=== PATIENT | female | born 1970 | race Caucasian/White ===

== ENCOUNTER 2023-08-11 18:43 | Emergency (ER) | payer MEDICAID ==
[2023-08-11 19:12] LABS: BASOPHILS # (AUTO) 0.1 10^3/uL (0.0-0.1); BASOPHILS % (AUTO) 0.7 %; EOSINOPHILS % (AUTO) 0.1 %; HCT - HEMATOCRIT 43.7 % (37.0-47.0); HGB - HEMOGLOBIN 14.4 g/dL (12.0-16.0); LYMPHOCYTES # (AUTO) 2.1 10^3/uL (1.5-3.5); LYMPHOCYTES % (AUTO) 25.7 %; MEAN CORPUSCULAR HEMOGLOBIN 29.6 pg (27.0-31.0); MEAN CORPUSCULAR VOLUME 89.9 fL (81.0-99.0); MEAN PLATELET VOLUME 10.5 fL (7.9-10.8); MONOCYTES # (AUTO) 0.5 10^3/uL (0.0-1.0); MONOCYTES % (AUTO) 6.1 %; NEUTROPHILS # (AUTO) 5.5 10^3/uL (1.5-6.6); NEUTROPHILS % (AUTO) 66.7 %; PLT - PLATELET COUNT 290 10^3/uL (130-450); RED BLOOD COUNT 4.86 10^6/uL (4.20-5.40); RED CELL DISTRIBUTION WIDTH 12.6 % (12.0-15.0); WHITE BLOOD COUNT 8.2 x10^3/uL (4.8-10.8)
[2023-08-11 19:47] LABS: ALBUMIN 5.1 g/dL (3.2-5.5); BILIRUBIN,TOTAL 0.3 mg/dL (0.2-1.0); CREATININE 0.7 mg/dL (0.6-1.3); MAGNESIUM 1.7 mg/dL (1.7-2.3); TOTAL PROTEIN 7.6 g/dL (6.4-8.9)
[2023-08-11 20:01] LABS: THYROID STIMULATING HORMONE 3.02 uIU/mL (0.34-5.60)
[2023-08-11] MEDS ORDERED: BENZONATATE 100 MG CAPSULE PO STA (21:11)
--- NOTE | 2023-08-11 21:14 | ED Physician Documentation ---
History of Present Illness - Stated complaint Stated Complaint: HIGH HEART RATE/COUGH - Chief complaint Chief Complaint: Cardiac - Additonal information Additional information: Patient 53-year-old female presenting to the emergency department with chest pressure, cough, rapid heart rate. She reports a history of frequent episodes of bronchitis that usually happen in the winter months. Reports that for the last 5 days she has been having cough with intermittent episodes of chest pressure which she states feels similar to bronchitis she has had in the past however she does report that the chest pressure is new and different for her. She also reports some swelling in her lower extremities. She denies any cardiac history, travel, history of blood clots, smoking. Does report that at one time she was on medication for cholesterol but this was discontinued by her primary care doctor when her "numbers got better". Denies any fever, hemoptysis, abdominal pain, nausea, vomiting, diarrhea, constipation. Review of Systems Constitutional: denies: Fever Eyes: denies: Loss of vision Ears: denies: Loss of hearing Nose: denies: Rhinorrhea / runny nose Cardiac: reports: Chest pain / pressure Respiratory: reports: Cough GI: reports: Abdominal Pain, Nausea, Vomiting, Constipation : reports: Dysuria PD PAST MEDICAL HISTORY - Past Medical History Past Medical History: No - Past Surgical History Past Surgical History: No Ortho: Shoulder arthroplasty - Present Medications Home Medications: Ambulatory Orders Medication Instructions Recorded Confirmed Benzonatate [Tessalon] 200 mg PO TID PRN #30 cap 08/11/23 Codeine Phosphate/Guaifenesin 5 ml PO OAW PRN #50 ml 08/11/23 [Codeine-Guaifen 10-100 mg/5 ml] - Allergies Allergies/Adverse Reactions: Allergies Allergy/AdvReac Type Severity Reaction Status Date / Time No Known Drug Allergies Allergy Verified 08/11/23 18:54 - Social History Does the pt smoke?: No Smoking Status: Never smoker Results - Vitals Vitals: Vital Signs - 24 hr 08/11/23 08/11/23 18:49 21:28 Temperature 36.7 C Heart Rate 127 H 90 Respiratory 16 14 Rate Blood Pressure 183/119 H 143/103 H O2 Saturation 97 99 Oxygen O2 Source Room air - EKG (time done) 1124 EKG releavant findings:: EKG personally interpreted by author of this note. Relevant findings are: Sinus rhythm with rate 111 bpm. Normal axis. Normal SD, QRS, QTc intervals. No ST segment elevations. Nonspecific ST abnormalities noted in the early precordial leads. No previous EKG available for comparison. - Labs Labs: Laboratory Tests 08/11/23 08/11/23 08/11/23 19:08 19:08 21:16 WBC 8.2 RBC 4.86 Hgb 14.4 Hct 43.7 MCV 89.9 MCH 29.6 MCHC 33.0 RDW 12.6 Plt Count 290 MPV 10.5 Neut # (Auto) 5.5 Lymph # (Auto) 2.1 O'Brien # (Auto) 0.5 Eos # (Auto) 0.0 Baso # (Auto) 0.1 Absolute Nucleated RBC 0.00 Nucleated RBC % 0.0 D-Dimer 226.7 Sodium 141 Potassium 4.0 Chloride 107 Carbon Dioxide 26 Anion Gap 8.0 BUN 8 Creatinine 0.7 Estimated GFR (MDRD) 88 L Glucose 100 Calcium 10.0 Magnesium 1.7 Total Bilirubin 0.3 AST 16 ALT 24 Alkaline Phosphatase 65 Troponin I High Sens Total Protein 7.6 Albumin 5.1 Globulin 2.5 Albumin/Globulin Ratio 2.0 TSH 3.02 Nasal Adenovirus (PCR) Nasal B. parapertussis DNA (PCR) Nasal Coronavir 229E PCR Nasal Coronavir HKU1 PCR Nasal Coronavir NL63 PCR Nasal Coronavir OC43 PCR Nasal Enterovir/Rhinovir PCR Nasal Influenza B PCR Nasal Influenza A PCR Nasal Parainfluen 1 PCR Nasal Parainfluen 2 PCR Nasal Parainfluen 3 PCR Nasal Parainfluen 4 PCR Nasal RSV (PCR) Nasal B.pertussis DNA PCR Nasal C.pneumoniae (PCR) Valentin Human Metapneumo PCR Nasal M.pneumoniae (PCR) Nasal SARS-CoV-2 (PCR) 08/11/23 08/11/23 21:16 21:20 WBC RBC Hgb Hct MCV MCH MCHC RDW Plt Count MPV Neut # (Auto) Lymph # (Auto) O'Brien # (Auto) Eos # (Auto) Baso # (Auto) Absolute Nucleated RBC Nucleated RBC % D-Dimer Sodium Potassium Chloride Carbon Dioxide Anion Gap BUN Creatinine Estimated GFR (MDRD) Glucose Calcium Magnesium Total Bilirubin AST ALT Alkaline Phosphatase Troponin I High Sens 2.6 Total Protein Albumin Globulin Albumin/Globulin Ratio TSH Nasal Adenovirus (PCR) NOT DETECTED Nasal B. parapertussis DNA (PCR) NOT DETECTED Nasal Coronavir 229E PCR NOT DETECTED Nasal Coronavir HKU1 PCR NOT DETECTED Nasal Coronavir NL63 PCR NOT DETECTED Nasal Coronavir OC43 PCR NOT DETECTED Nasal Enterovir/Rhinovir PCR NOT DETECTED Nasal Influenza B PCR NOT DETECTED Nasal Influenza A PCR NOT DETECTED Nasal Parainfluen 1 PCR NOT DETECTED Nasal Parainfluen 2 PCR NOT DETECTED Nasal Parainfluen 3 PCR NOT DETECTED Nasal Parainfluen 4 PCR NOT DETECTED Nasal RSV (PCR) NOT DETECTED Nasal B.pertussis DNA PCR NOT DETECTED Nasal C.pneumoniae (PCR) NOT DETECTED Valentin Human Metapneumo PCR NOT DETECTED Nasal M.pneumoniae (PCR) NOT DETECTED Nasal SARS-CoV-2 (PCR) NOT DETECTED PD Medical Decision Making - ED course Complexity details: reviewed results, re-evaluated patient, considered differential, d/w patient ED course: Patient 53-year-old female presenting to the emergency department with chief complaint cough and chest pressure. This is in the setting of previous bouts of bronchitis. She states she has been using her albuterol inhaler at home with minimal relief. Low level tachycardia on arrival to the emergency department. EKG demonstrates a sinus rhythm with some nonspecific changes but no clear indications cardiac ischemia. High-sensitivity troponin is negative as is her D-dimer. Her chest x-ray per my interpretation is nonacute. Respiratory viral panel negative. Lab work otherwise within normal limits or nonactionable. She was monitored on telemetry for several hours without new or worsening symptoms. She was given dose Decadron and Tessalon for symptomatic management. Will discharge on course of Tessalon as well as with a short course of codeine- containing cough syrup for symptomatic management. Will encourage careful follow-up with primary care. Clear return precautions given. Departure - Departure Disposition: 01 Home, Self Care Clinical Impression: Bronchitis, Chest pressure Instructions: ED Bronchitis Asthmatic Prescriptions: Codeine Phosphate/Guaifenesin [Codeine-Guaifen 10-100 mg/5 ml] 5 ml PO OAW PRN #50 ml PRN Reason: Cough Benzonatate [Tessalon] 200 mg PO TID PRN #30 cap PRN Reason: Cough Comments: Thank you for allowing us to care for you today [facility]. Today in the emergency department you were evaluated for any possible dangerous or life-threatening medical emergency. The overwhelming majority of that you are tests including your EKG, blood work and chest x-ray were all very reassuring. Your COVID and influenza swabs were negative here in the emergency room. I do believe that you are suffering from a case of bronchitis. Your x-ray did not show any signs of pneumonia per my interpretation however this will be reviewed by a radiologist and if there is any discrepancy I will contact you directly.You are given a dose of Decadron, a long-acting steroidTo help with this. Also be writing her prescriptions for Tessalon Perles for cough control during the day as well as a codeine-containing cough syrup which can be used at night. Please be aware that the codeine-containing cough syrup is sedating and potentially habit-forming. Should not be used if you are operating a motor vehicle, using of a machinery or you are the sole registered nurse post partum of young children. This medication cannot be refilled from the emergency room. Please do follow-up with your primary care doctor soon as possible. If it anytime you have any new or worsening symptoms please return to the emergency department. Forms: PCP List
[2023-08-11] MEDS ORDERED: SODIUM CHLORIDE 0.9% 1,000 ML IV STA (21:18)
[2023-08-11 22:26] LABS: B. PARAPERTUSSIS- RESP PCR PAN NOT DETECTED; B. PERTUSSIS- RESP PCR PANEL NOT DETECTED; C. PNEUMONIAE- RESP PCR PANEL NOT DETECTED; CORONAVIRUS 229E-RESP PCR NOT DETECTED; CORONAVIRUS HKU1-RESP PCR NOT DETECTED; CORONAVIRUS NL63-RESP PCR NOT DETECTED; CORONAVIRUS OC43-RESP PCR NOT DETECTED; HUMAN METAPNEUMOVIRUS NOT DETECTED; INFLUENZA A- RESP PCR PANEL NOT DETECTED; INFLUENZA B - RESP PCR PANEL NOT DETECTED; M. PNEUMONIAE- RESP PCR PANEL NOT DETECTED; PARAINFLUENZA VIRUS 1 NOT DETECTED; PARAINFLUENZA VIRUS 2 NOT DETECTED; PARAINFLUENZA VIRUS 3 NOT DETECTED; PARAINFLUENZA VIRUS 4 NOT DETECTED; RHINOVIRUS/ENTEROVIRUS NOT DETECTED; RSV- RESP PCR PANEL NOT DETECTED; SARS-CoV-2 -RESP PCR PANEL NOT DETECTED
[2023-08-11] MEDS ORDERED: DEXAMETHASONE 10 MG/ML VIAL PO STA (23:15)
[2023-08-11] MEDS ORDERED: CHERRY SYRUP 10 ML UDC PO ONE ×2 (23:15→23:51)
--- NOTE | 2023-08-11 23:52 | XRAY Report ---
PROCEDURE: Chest 2 View X-Ray INDICATIONS: cough TECHNIQUE: 2 views of the chest were acquired. COMPARISON: None. FINDINGS: Surgical changes and devices: None. Lungs and pleura: No pleural effusions or pneumothorax. Lungs are clear. Mediastinum: Mediastinal contours appear normal. Heart size is normal. Bones and chest wall: No suspicious bony lesions. Overlying soft tissues appear unremarkable. IMPRESSION: No acute cardiopulmonary process. Reviewed by: Galina Melara MD on 08/11/2023 11:50 PM [facility] Approved by: Galina Melara MD on 08/11/2023 11:50 PM [facility] Station ID: [id number]
[2023-08-12 00:07] VITALS: BP 138/95; O2SAT 98
== END 2023-08-11 23:51 | disposition home or self-care (01) ==
LOC: ED 18:43
DX: J40 Bronchitis, not specified as acute or chronic (principal); R07.89 Other chest pain; Z20.822 Contact with and (suspected) exposure to COVID-19
CPT/HCPCS: 36415; 71046; 80053; 83735; 84443; 84484; 85025; 85379; 87633; 93005; 99284; A9270

== ENCOUNTER 2023-08-23 12:06 | Emergency (ER) | payer MEDICAID ==
[2023-08-23 12:32] VITALS: O2SAT 98
--- NOTE | 2023-08-23 13:09 | XRAY Report ---
PROCEDURE: Chest 2 View X-Ray INDICATIONS: cough/SOA TECHNIQUE: 2 views of the chest were acquired. COMPARISON: 08/11/2023 plain films FINDINGS: Surgical changes and devices: None. Lungs and pleura: No pleural effusions or pneumothorax. Lungs are clear. Mediastinum: Mediastinal contours appear normal. Heart size is normal. Bones and chest wall: No suspicious bony lesions. Overlying soft tissues appear unremarkable. IMPRESSION: No acute process. Reviewed by: Garth Real MD on 08/23/2023 1:07 PM [facility] Approved by: Garth Real MD on 08/23/2023 1:07 PM [facility] Station ID: [id number]
--- NOTE | 2023-08-23 13:27 | ED Physician Documentation ---
PD HPI URI - Stated complaint Stated Complaint: CHEST PX,SORE THROAT,CONGESTION,HEBERT - Chief complaint Chief Complaint: Resp - History obtained from History obtained from: Patient - History of Present Illness Timing - onset: How many weeks ago (over a week with cough, malaise, weakness, and congestion, with now worsening cough that is productive. Having some left ear pain as well.) Timing details: Gradual onset, Still present (worsening cough productive now.) Associated symptoms: Fever, Chills, Ear pain (left), Nasal congestion, Productive cough Contributing factors: Sick contact. No: Unimmunized, COPD / asthma Recently seen: Not recently seen Review of Systems Constitutional: reports: Fever, Chills, Myalgias Ears: reports: Ear pain Nose: reports: Congestion Respiratory: reports: Cough PD PAST MEDICAL HISTORY - Past Medical History Cardiovascular: High cholesterol Respiratory: Asthma Neuro: Migraines Endocrine/Autoimmune: HyPOthyroidism GI: None BOILER HELPER: None, Fibroids : None HEENT: None Musculoskeletal: Other Derm: None - Past Surgical History Past Surgical History: No Ortho: Shoulder arthroplasty /BOILER HELPER: Other - Present Medications Home Medications: Ambulatory Orders Medication Instructions Recorded Confirmed Albuterol Sulf [Ventolin Hfa 1 - 2 puffs INH Q4HR PRN 08/23/23 08/23/23 Inhaler] Amoxicillin 500 mg PO TID #18 cap 08/23/23 Benzonatate [Tessalon] 100 mg PO TID PRN #20 cap 08/23/23 Cetirizine [ZyrTEC] 10 mg PO BID #15 tablet 08/23/23 Ondansetron Odt [Zofran] 4 mg TL Q6H PRN #10 tablet 08/23/23 dexAMETHasone [Decadron] 4 mg PO DAILY #6 tablet 08/23/23 - Allergies Allergies/Adverse Reactions: Allergies Allergy/AdvReac Type Severity Reaction Status Date / Time No Known Drug Allergies Allergy Verified 08/23/23 12:17 - Social History Does the pt smoke?: No Smoking Status: Never smoker Does the pt drink ETOH?: Yes Does the pt have substance abuse?: Yes Substance Use and Type: CBD oil / Products - Immunizations Immunizations are current?: Yes PD ED PE NORMAL - Vitals Vital signs reviewed: Yes - General General: Alert and oriented X 3, No acute distress, Well developed/nourished - HEENT HEENT: Ears normal (right is okay. left canal is okay; TM is pressured, with clear appearance. ), Pharynx benign - Neck Neck: Supple, no meningeal sign, No adenopathy - Cardiac Cardiac: RRR, No murmur - Respiratory Respiratory: No respiratory distress, Clear bilaterally - Abdomen Abdomen: Soft, Non tender - Derm Derm: Normal color, Warm and dry Results - Vitals Vitals: Oxygen O2 Source Room air - EKG (time done) 12:30 EKG releavant findings:: EKG personally interpreted by author of this note. Relevant findings are: Rate: Rate (enter#) (106) Rhythm: Sinus tachycardia Adrian: Normal Intervals: Normal [place] QRS: Normal Ischemia: Normal ST segments. No: ST elevation c/w ischemia, ST depression - Labs Labs: Laboratory Tests 08/23/23 12:30 Nasal Adenovirus (PCR) NOT DETECTED Nasal B. parapertussis DNA (PCR) NOT DETECTED Nasal Coronavir 229E PCR NOT DETECTED Nasal Coronavir HKU1 PCR NOT DETECTED Nasal Coronavir NL63 PCR NOT DETECTED Nasal Coronavir OC43 PCR NOT DETECTED Nasal Enterovir/Rhinovir PCR NOT DETECTED Nasal Influenza B PCR NOT DETECTED Nasal Influenza A PCR NOT DETECTED Nasal Parainfluen 1 PCR NOT DETECTED Nasal Parainfluen 2 PCR NOT DETECTED Nasal Parainfluen 3 PCR NOT DETECTED Nasal Parainfluen 4 PCR NOT DETECTED Nasal RSV (PCR) NOT DETECTED Nasal B.pertussis DNA PCR NOT DETECTED Nasal C.pneumoniae (PCR) NOT DETECTED Valentin Human Metapneumo PCR NOT DETECTED Nasal M.pneumoniae (PCR) NOT DETECTED Nasal SARS-CoV-2 (PCR) DETECTED A - Rads (name of study) chest xray Relevant Findings:: Prelim report reviewed, EMP independent interpretation of test (no acute process) PD Medical Decision Making - ED course Complexity details: considered differential (ill for over a week. Has increasing cough now, productive, and with ear pain. Does test positive for COVID, but duration of symptoms suggests positive secondary bronchitis. Lungs clar enough, does not seem pneumonia. ), d/w patient Departure - Departure Disposition: 01 Home, Self Care Clinical Impression: Dyspnea, Bronchitis, Serous otitis media, COVID-19 Condition: Stable Record reviewed to determine appropriate education?: Yes Prescriptions: Amoxicillin 500 mg PO TID #18 cap dexAMETHasone [Decadron] 4 mg PO DAILY #6 tablet Benzonatate [Tessalon] 100 mg PO TID PRN #20 cap PRN Reason: Cough Ondansetron Odt [Zofran] 4 mg TL Q6H PRN #10 tablet PRN Reason: Nausea / Vomiting Cetirizine [ZyrTEC] 10 mg PO BID #15 tablet Comments: Continue with your albuterol inhaler 2 to 3 puffs 4 times daily for the next several days to week. Add Decadron steroid daily for 6 more days. Your respiratory viral panel tested positive for COVID. The pattern of your symptoms however is suggestive of possibly a secondary bacterial infection/bronchitis. I would add amoxicillin antibiotic for 6 more days as well. Otherwise to help with symptoms generally, you can use benzonatate if needed for cough. You do have appearance of some fluid pressure behind the eardrums and likely in the sinuses clinically so you could add cetirizine antihistamine as well. I sent these prescriptions to your preferred pharmacy. Also included and there is ondansetron if needed for nausea so he can maintain good hydration. I would anticipate improvement over the next few days and resolved over 4 to 5 days or so. Sometimes the cough itself can persist for several weeks but the general other symptoms should improve. Forms: PCP List Discharge Date/Time: 08/23/23 15:47
[2023-08-23] MEDS ORDERED: ALBUTEROL NEB 2.5 MG/3 ML INH STA (13:51)
[2023-08-23] MEDS ORDERED: ONDANSETRON ODT 4 MG TABLET TL STA (13:51)
[2023-08-23] MEDS ORDERED: dexAMETHasone 4 MG TABLET PO STA (13:51)
[2023-08-23] MEDS ORDERED: BENZONATATE 100 MG CAPSULE PO STA (13:52)
[2023-08-23 14:08] LABS: B. PARAPERTUSSIS- RESP PCR PAN NOT DETECTED; CORONAVIRUS 229E-RESP PCR NOT DETECTED; CORONAVIRUS HKU1-RESP PCR NOT DETECTED; CORONAVIRUS NL63-RESP PCR NOT DETECTED; CORONAVIRUS OC43-RESP PCR NOT DETECTED; HUMAN METAPNEUMOVIRUS NOT DETECTED; INFLUENZA A- RESP PCR PANEL NOT DETECTED; INFLUENZA B - RESP PCR PANEL NOT DETECTED; PARAINFLUENZA VIRUS 1 NOT DETECTED; PARAINFLUENZA VIRUS 2 NOT DETECTED; PARAINFLUENZA VIRUS 3 NOT DETECTED; PARAINFLUENZA VIRUS 4 NOT DETECTED; RHINOVIRUS/ENTEROVIRUS NOT DETECTED; RSV- RESP PCR PANEL NOT DETECTED
[2023-08-23 14:09] LABS: B. PERTUSSIS- RESP PCR PANEL NOT DETECTED; C. PNEUMONIAE- RESP PCR PANEL NOT DETECTED; M. PNEUMONIAE- RESP PCR PANEL NOT DETECTED; SARS-CoV-2 -RESP PCR PANEL DETECTED
[2023-08-23] MEDS ORDERED: ALBUTEROL 1 PUFF INH STA (15:06)
[2023-08-23 15:51] VITALS: BP 130/79
== END 2023-08-23 15:47 | disposition home or self-care (01) ==
LOC: ED 12:06
DX: U07.1 COVID-19 (principal); H65.92 Unspecified nonsuppurative otitis media, left ear; J40 Bronchitis, not specified as acute or chronic; E78.00 Pure hypercholesterolemia, unspecified; E03.9 Hypothyroidism, unspecified; Z79.899 Other long term (current) drug therapy
CPT/HCPCS: 71046; 87633; 93005; 94640; 99284; A9270; J8540; Q0162